=== PATIENT | male | born 1940 | race Caucasian/White ===

== ENCOUNTER 2020-07-02 22:21 | Inpatient (IN) | payer MEDICARE, OTHER ==
[~2020-07-02] VITALS: Ht 180.3 cm; Wt 73.0 kg
[2020-07-02 22:45] LABS: BASOPHILS % (AUTO) 0.6 % (0.0-2.0); EOSINOPHILS # (AUTO) 0.1 K/uL (0.0-0.7); EOSINOPHILS % (AUTO) 2.2 % (0.0-7.0); HEMATOCRIT 36.7 % (36.7-47.1); HEMOGLOBIN 11.9 g/dL (12.5-16.3); MEAN CORPUSCULAR HEMOGLOBIN 27.5 uug (23.8-33.4); MEAN CORPUSCULAR HGB CONC 33 g/dL (32.5-36.3); MEAN CORPUSCULAR VOLUME 84.5 fL (73.0-96.2); MONOCYTES # (AUTO) 0.6 K/uL (2.0-10.0); MONOCYTES % (AUTO) 9.6 % (0.0-11.0); NEUTROPHILS # (AUTO) 3.6 K/uL (1.8-8.9); NEUTROPHILS % (AUTO) 56.6 % (38.5-71.5); PLATELET COUNT (AUTO) 329 K/uL (152-348); RED BLOOD CELL COUNT(AUTO) 4.34 MIL/uL (4.06-5.63); WHITE BLOOD COUNT (AUTO) 6.3 K/uL (3.6-10.2)
[2020-07-02 22:51] LABS: CARBON DIOXIDE 27 mmol/L (21-32); CHLORIDE 104 mmol/L (98-107); CREATININE 0.9 mg/dL (0.6-1.3); GLUCOSE 129 mg/dL (74-106); UREA NITROGEN, BLOOD 27 mg/dL (7-18)
[2020-07-02 22:57] LABS: ALANINE AMINOTRANSFERASE 37 U/L (16-63); ALKALINE PHOSPHATASE 58 U/L (50-136); ASPARTATE AMINOTRANSFERASE 42 U/L (15-37); BILIRUBIN,DIRECT 0.1 mg/dL (0.0-0.2); BILIRUBIN,TOTAL 0.2 mg/dL (0.2-1.0); TOTAL PROTEIN, SERUM 6.6 g/dL (6.4-8.2)
[2020-07-02 22:59] LABS: ACETAMINOPHEN < 2.0 ug/mL (10-30)
[2020-07-02] MEDS ORDERED: DOCU-141 PO (23:05)
[2020-07-02] MEDS ORDERED: BISA10SU61 RC (23:05)
[2020-07-02] MEDS ORDERED: LORA-258 PO (23:05)
[2020-07-02] MEDS ORDERED: MAGN400O6 PO (23:05)
[2020-07-02] MEDS ORDERED: NA P133E RC (23:05)
[2020-07-02] MEDS ORDERED: TEMA7.5C PO (23:05)
[2020-07-02] MEDS ORDERED: HALO2TAB PO (23:05)
[2020-07-02 23:13] LABS: ETHANOL < 3 MG/DL (0-0)
[2020-07-02] MEDS ORDERED: FLEET ENEMA 133 ML BOTTLE RC PRN (23:15)
[2020-07-02] MEDS ORDERED: BISACODYL 10 MG SUPP.RECT RC PRN (23:15)
[2020-07-02] MEDS ORDERED: MAGNESIUM HYDROXIDE 30 ML LIQUID UDC PO PRN (23:15)
[2020-07-03 00:54] VITALS: BP 152/77
[2020-07-03] MEDS ORDERED: MAG HYDROX/AL HYDROX/SIMETH 30 ML LIQUID UDC PO PRN (01:15)
[2020-07-03] MEDS ORDERED: ZOLPIDEM 5 MG TABLET PO PRN (01:15)
[2020-07-03] MEDS ORDERED: MAGNESIUM HYDROXIDE 30 ML LIQUID UDC PO PRN (01:15)
--- NOTE | 2020-07-03 01:30 | NUR ---
AT APPROX 0045 ADMITTED 79 YEAR OLD MALE FROM [facility] TO [facility] ON A [address] 50 FOR DTO AND GD. PER HOLD, PATIENT HAS BEEN REFUSING MEDICATION AT HIS SNF. HE HAS BEEN AGGRESSIVE AND THREATENING BX TOWARD STAFF. UPON ADMISSION , FACE TO FACE ASSESSMENT WAS CONDUCTED, PATIENT A/OX 2 HE IS NOTED CALM AND PLEASANT. PATIENT WAS ADVISE OF HIS HOLD AND ADVISEMENT WAS GIVEN WELL HIS BOOKLET FOR PATIENT RIGHT ON MENTAL HEALTH FACILITIES. BELONGING WERE INVENTORIED AND SECURED. PATIENT IS UNDER THE CARE OF DR URIBE AND JONATHAN. WILL CONTINUE TO MONITOR.
[2020-07-03 07:30] VITALS: BP 143/65
--- NOTE | 2020-07-03 08:00 | NUR ---
Alert, oriented x 2, ambulatory with FWW. Calm and compliant with taking of medications.
[2020-07-03] MEDS: DOCUSATE SODIUM 100 MG CAPSULE PO SCH (08:21)
[2020-07-03] MEDS: HALOPERIDOL 0.5 MG TABLET PO SCH ×2 (09:42→20:43)
[2020-07-03 09:46] LABS: *BILIRUBIN,URIN NEGATIVE (NEGATIVE); *BLOOD, URINE NEGATIVE (NEGATIVE); *CLARITY,URINE SLIGHTLY CLOUDY (CLEAR); *COLOR,URINE YELLOW (YELLOW); *KETONES,URINE NEGATIVE (NEGATIVE); *UROBILINOGEN,URINE 0.2 E.U./dl (NORMAL); LEUKOCYTE ESTERASE ,URINE NEGATIVE (NEGATIVE); NITRITE, URINE NEGATIVE (NEGATIVE); PH,URINE 6.5 (5.0-8.0); UGLUCOSE NEGATIVE (NEGATIVE)
[2020-07-03 09:48] LABS: *AMPHETAMINE, URINE NEGATIVE (NEGATIVE); *CANNABINOID, URINE NEGATIVE (NEGATIVE); *COCCAINE, URINE NEGATIVE (NEGATIVE); *OPIATE, URINE NEGATIVE (NEGATIVE); *PHENCYCLIDINE SCREEN,URINE NEGATIVE (NEGATIVE)
[2020-07-03] MEDS: busPIRone 5 MG TABLET PO SCH ×2 (12:03→17:06)
--- NOTE | 2020-07-03 12:14 | NUR ---
EMELY Initial Discharge Plan: [place] [address] ([phone]). EMELY spoke with Aide chu at the facility who confirmed patient is welcome back. EMELY will continue to work with patient, family, and MD to ensure a safe and proper discharge plan.
--- NOTE | 2020-07-03 12:15 | NUR ---
Firearms Report: Dandy Tender completed and submitted a [employer] firearms report for 5150 danger to others and grave disability certifications. A copy of report has been placed in patient chart.
--- NOTE | 2020-07-03 12:20 | NUR ---
EMELY Family Contact: SW called and left a voicemail for patient's nephew Richie ([phone]) to discuss treatment plan. Waiting for call back.
--- NOTE | 2020-07-03 13:00 | NUR ---
Participated in the activities. Suspicious of medication but cooperative with taking it after explanation
[2020-07-03 13:02] LABS: BACTERIA,URINE NONE SEEN /HPF (NONE SEEN); RBC,URINE NONE SEEN /HPF (0-3); SQUAMOUS EPITHELIAL CELL,UR FEW /HPF (NONE SEEN); WBC,URINE 0-3 /HPF (0-3)
[2020-07-03] MEDS ORDERED: IBUPROFEN 600 MG TABLET PO PRN (15:30)
[2020-07-03 16:00] VITALS: BP 126/60
[2020-07-03 20:29] VITALS: BP 152/73
[2020-07-03] MEDS: LORAZEPAM 0.5 MG TABLET PO PRN (20:43)
--- NOTE | 2020-07-04 05:41 | NUR ---
Received patient in room last night. Awake but disoriented. Inorganic Chemical Technician reoriented patient to situation and patient became agitated and was not willing to take his PM medications at first. After educating and encouragement, the patient complied. Total hours of sleep were 6.30. The patient is up early this am, talking with contract writer and much less confused. Continuing to monitor patients anxiety and for safety. No distress at this time.
[2020-07-04 07:30] VITALS: BP 133/70
[2020-07-04] MEDS: DOCUSATE SODIUM 100 MG CAPSULE PO SCH (08:19)
[2020-07-04] MEDS: HALOPERIDOL 0.5 MG TABLET PO SCH ×2 (09:00→13:53)
[2020-07-04] MEDS: busPIRone 5 MG TABLET PO SCH ×5 (09:00→16:18)
[2020-07-04] MEDS: LIDOCAINE 5% PATCH TD SCH (10:08)
[2020-07-04] MEDS: HALOPERIDOL 1 MG TABLET PO SCH ×2 (14:31→20:45)
[2020-07-04 16:00] VITALS: BP 123/67
--- NOTE | 2020-07-04 17:45 | NUR ---
Received pateint in bed alert and oriented x 2 with periods of confusion. Patient refused Haldol and Buspar per MD order. Explained to the patient about his medications patient still refused. Dr. Whalen seen him and spoke to him. When asked if he wants to take his medications that he refused (Haldol and Buspar) patient says "YES".
--- NOTE | 2020-07-04 17:49 | NUR ---
All needs met in a timely manner.
[2020-07-04 19:52] VITALS: BP 110/67
--- NOTE | 2020-07-05 06:02 | NUR ---
Patient slept 6.00 hours last night. No changes noticed in behavior from previous night. Patient did take his PM medication without difficulty or hesitation. Continue to monitor for safety and medication compliance.
[2020-07-05] MEDS ORDERED: LORAZEPAM 0.5 MG TABLET PO PRN ×2 (06:30)
[2020-07-05 07:30] VITALS: BP_SYST 137; BP_SYST 157; BP_DIAS 77
--- NOTE | 2020-07-05 07:30 | NUR ---
Patient is received calm and cooperative. Alert and oriented time 4. Patient is compliant with medications. Denies any pain, SI/MILLER. Safety precautions implemented. Will continue to monitor.
[2020-07-05] MEDS: HALOPERIDOL 1 MG TABLET PO SCH ×2 (08:20→20:43)
[2020-07-05] MEDS: busPIRone 5 MG TABLET PO SCH ×3 (08:20→16:35)
[2020-07-05] MEDS: LIDOCAINE 5% PATCH TD SCH (08:20)
[2020-07-05] MEDS: DOCUSATE SODIUM 100 MG CAPSULE PO SCH (08:34)
[2020-07-05 15:30] VITALS: BP 133/79
--- NOTE | 2020-07-05 18:15 | NUR ---
Patient was calm, and cooperate through out shift. Gave all medications as ordered. Patient is confused at times and is repetitive with his questions. Patient denies any SI/MILLER. Safety precautions are implemented. Will endorse to the oncoming nurse.
[2020-07-05 19:54] VITALS: BP 136/72
--- NOTE | 2020-07-06 04:03 | NUR ---
Received patient in his room last night. Lacrosse Coach encouraged patient to join the others in the day room for a snack. Patient declined and wanted parts data writer to bring his snack to him in the bed. Patient was alert and oriented to name and knew he was in the hospital but could not remember which one and why he was here. Patient had only one medication for the PM and he took it without any problem. As the night progressed patient seemed to have an increase in confusion. Patient has been up and down throughout the shift, fiddling around with the items on his table and multiple trips in the bathroom. This parts data writer is monitoring the patient closely for safety and reorienting the patient as needed. No acute behavioral issues noted at this time.
[2020-07-06 07:30] VITALS: BP 157/75
[2020-07-06] MEDS: busPIRone 5 MG TABLET PO SCH ×3 (08:30→16:19)
[2020-07-06] MEDS: DOCUSATE SODIUM 100 MG CAPSULE PO SCH (08:30)
[2020-07-06] MEDS: LIDOCAINE 5% PATCH TD SCH (08:31)
[2020-07-06] MEDS: HALOPERIDOL 1 MG TABLET PO SCH ×2 (08:31→20:45)
[2020-07-06 15:02] VITALS: BP 138/76
--- NOTE | 2020-07-06 17:00 | NUR ---
Patient refused lab draw. Patient states he will get exposed if his blood is drawn. Explained to patient the lab draw is an MD order. Patient still refused and said he will tell the doctor when he sees him.
[2020-07-06 20:07] VITALS: BP 148/72
[2020-07-07 07:30] VITALS: BP 139/70
[2020-07-07] MEDS: LIDOCAINE 5% PATCH TD SCH (08:07)
[2020-07-07] MEDS: busPIRone 5 MG TABLET PO SCH ×3 (08:07→16:23)
[2020-07-07] MEDS: DOCUSATE SODIUM 100 MG CAPSULE PO SCH (08:07)
[2020-07-07] MEDS: HALOPERIDOL 1 MG TABLET PO SCH ×3 (08:07→16:23)
--- NOTE | 2020-07-07 09:02 | NUR ---
EMELY Individual Counseling: SW met with patient today to provide brief individual counseling and address patient's presenting problem of paranoid thought process. SW helped patient gain insight into his presenting problem. Patient presents somewhat disorganized and forgetful. Patient however demonstrates a decrease in paranoid ideation. Patient has been cooperative with his care and demonstrating calm demeanor. SW will continue to remain available for patient for ongoing support.
--- NOTE | 2020-07-07 09:14 | NUR ---
DR GREY HERE AND SEEN PATIENT WITH CHANGED IN HIS MEDICATION DOSAGES.
--- NOTE | 2020-07-07 12:12 | NUR ---
EMELY Family Contact/Conservatorship: EMELY received a call from patient's nephew Richie ([phone]) who stated that he is the patient's Probate Conservator and this EMELY requested for documents. EMELY discussed treatment and discharge plan. Richie is agreeable with treatment and discharge plan back to [facility]. Addendum: 07/07/20 at 1313 by MARICARMEN PRUETT EMELY received documents via fax and placed them in the patient's chart.
[2020-07-07 15:22] VITALS: BP 147/80
--- NOTE | 2020-07-07 18:04 | NUR ---
AMBULATING IN THE HALLWAY WITH THE FRONT WHEEL WALKER WITH SLOW STEADY GAIT ALERT BUT IS CONFUSED WILL CONTINUE TO REDIRECT AND PROVIDE SAFE AND THERAPEUTIC ENVIRONMENT AT ALL TIMES.
[2020-07-07 20:00] VITALS: BP 142/79
--- NOTE | 2020-07-07 21:12 | NUR ---
Received patient in hallway walking to the dining room. No s/s of acute distress noted at this time. Patient is ambulatory with FWW, and well groomed. Patient alert and oriented x3. Patient is pleasant and engages in meaningful conversation. Q15min safety checks in place and will continue to monitor.
[2020-07-07] MEDS ORDERED: IBUPROFEN 400 MG TABLET PO PRN (22:45)
--- NOTE | 2020-07-08 06:43 | NUR ---
Patient slept 6.00 hours last night. No acute changes noted. Compliant with care provided. Q15 min safety checks remained intact. Continue to monitor for safety.
[2020-07-08 07:30] VITALS: BP 146/73
[2020-07-08] MEDS: LORAZEPAM 0.5 MG TABLET PO PRN (07:41)
[2020-07-08] MEDS: busPIRone 5 MG TABLET PO SCH ×3 (08:09→16:02)
[2020-07-08] MEDS: DOCUSATE SODIUM 100 MG CAPSULE PO SCH (08:09)
[2020-07-08] MEDS: LIDOCAINE 5% PATCH TD SCH (08:11)
[2020-07-08] MEDS: HALOPERIDOL 1 MG TABLET PO SCH ×3 (08:11→16:02)
--- NOTE | 2020-07-08 10:21 | NUR ---
EMELY PC Hearing: Patient had 5250 probable cause hearing today and it was upheld for grave disability.
[2020-07-08 16:24] VITALS: BP 114/54
--- NOTE | 2020-07-08 17:47 | NUR ---
no acute distress noted, patient paces back and forth in the hallway, compliant with medications, denied any suicidal thoughts or ideations.
[2020-07-08] MEDS: ATORVASTATIN 10 MG TABLET PO SCH (20:07)
[2020-07-08 20:22] VITALS: BP 127/61
--- NOTE | 2020-07-08 21:38 | NUR ---
Received patient in the hallway, pleasant upon approach, has semi fair insight and semi fair judgment, can be seen interacting with staff and peers. Patient will remain in a psych facility for further evaluation and treatment.
[2020-07-09 07:30] VITALS: BP 151/58
[2020-07-09] MEDS: HALOPERIDOL 0.5 MG TABLET PO SCH ×3 (08:50→17:14)
[2020-07-09] MEDS: DOCUSATE SODIUM 100 MG CAPSULE PO SCH (08:50)
[2020-07-09] MEDS: busPIRone 5 MG TABLET PO SCH ×3 (08:50→17:14)
[2020-07-09] MEDS: LIDOCAINE 5% PATCH TD SCH (08:51)
--- NOTE | 2020-07-09 15:37 | NUR ---
EMELY Family Contact/Conservatorship: EMELY spoke with patient's nephew Richie ([phone]) and discussed updated treatment and discharge plan. Richie is agreeable with discharge tomorrow.
[2020-07-09 16:00] VITALS: BP 140/70
[2020-07-09 20:19] VITALS: BP 138/70
[2020-07-09] MEDS: ATORVASTATIN 10 MG TABLET PO SCH (20:48)
--- NOTE | 2020-07-09 21:38 | NUR ---
RECEIVED PATIENT IN THE DINING ROOM INTERACTING WITH PEERS. CALM AND COOPERATIVE BUT SUSPICIOUS ABOUT HIS MEDICATIONS.HELD THE MEDICATION IN HIS HANDS FOR A WHILE , ASKED WHAT IT WAS FOR SEVERAL TIMES BEFORE HE TOOK IT.DENIES ANY SUICIDAL IDEATION OR THOUGHT. VISUAL CHECKS MADE ON HIM FOR SAFETY.WILL CONTINUE TO MONITOR.
--- NOTE | 2020-07-10 06:55 | NUR ---
SLEPT FOR 2HOURS.
[2020-07-10 07:30] VITALS: BP 131/63
[2020-07-10] MEDS: HALOPERIDOL 0.5 MG TABLET PO SCH ×2 (08:03→13:12)
[2020-07-10] MEDS: DOCUSATE SODIUM 100 MG CAPSULE PO SCH (08:03)
[2020-07-10] MEDS: busPIRone 5 MG TABLET PO SCH ×2 (08:03→13:12)
--- NOTE | 2020-07-10 08:04 | NUR ---
CORRECT SW DISCHARGE NOTE: Patient will be discharged to [facility] [address] [place] [address] ([phone]). Patient will be provided Ambulance transportation at 1PM. Spoke with Yolie, Admin Coordinator at the facility who states they are ready to accept the patient today. Patient is aware and agreeable with discharge plans. Patient is alert and oriented x3, is unable to plan for self-care, however, is willing to accept care at [facility]. Patient denies any suicidal or homicidal ideation. Patient will follow-up at the facility with Dr. Whalen Psychiatrist and Dr. Gan Pipe And Test Supervisor. Patient presents with calm mood and congruent affect. Patients nephew/probate conservatorRichie ([phone]) is aware and agreeable with discharge plan.
--- NOTE | 2020-07-10 08:04 | NUR ---
EMELY Discharge Note: Patient will be discharged to [facility] [address] [facility], [place] [address] ([phone]). Patient will be provided Ambulance transportation at 1PM. Spoke with Yolie, Admin Coordinator at the facility who states they are ready to accept the patient today. Patient is aware and agreeable with discharge plans. Patient is alert and oriented x3, is unable to plan for self-care, however, is willing to accept care at [facility]. Patient denies any suicidal or homicidal ideation. Patient will follow-up at the facility with Dr. Goldsmith Psychiatrist and Dr. Gan Terrazzo Journeyman. Patient presents with calm mood and congruent affect. Patients nephew/probate conservatorRichie ([phone]) is aware and agreeable with discharge plan. Addendum: 07/10/20 at 0804 by MARICARMEN PRUETT DISREGARD NOTE
[2020-07-10] MEDS: LIDOCAINE 5% PATCH TD SCH (08:07)
[2020-07-10] MEDS ORDERED: ENSURE ENLIVE (VAN) 240 ML LIQUID PO SCH (09:00)
--- NOTE | 2020-07-10 14:08 | NUR ---
PT LEFT UNIT ON [facility] ACCOMPANIED BY 2 SLATE ROOFER HELPER. CALM AND COOPERATIVE.ABLE TO MAKE ALL NEEDS KNOWN. LEFT WITH ALL NOTED BELONGINGS AND PAPERWORK. DENIES PAIN OR DISCOMFORT. V/S STABLE. IN NO ACUTE DISTRESS. DENIES SUICIDAL AND HOMICIDAL IDEATIONS.
== END 2020-07-10 14:00 | DRG 885 ==
LOC: ER 22:24 → GPS 23:55
PROVIDERS: ADMIT Psychiatry & Neurology Psychiatry; ATTEND Internal Medicine
DX: F29 Unspecified psychosis not due to a substance or known physiological condition (principal); E43 Unspecified severe protein-calorie malnutrition; F03.91 Unspecified dementia, unspecified severity, with behavioral disturbance; G89.29 Other chronic pain; M19.90 Unspecified osteoarthritis, unspecified site; Z73.6 Limitation of activities due to disability; M62.81 Muscle weakness (generalized); F41.9 Anxiety disorder, unspecified; E88.09 Other disorders of plasma-protein metabolism, not elsewhere classified; F32.9 Major depressive disorder, single episode, unspecified; Z68.22 Body mass index [BMI] 22.0-22.9, adult; Z20.822 Contact with and (suspected) exposure to COVID-19
CPT/HCPCS: 36415; 71045; 85025; 93005; A4663; G0480; U0003